=== PATIENT | male | born 1960 | race Caucasian/White ===

== ENCOUNTER 2020-09-11 20:05 | Emergency (ER) | payer MEDICAID, SELFPAY ==
[~2020-09-11] VITALS: Ht 180.3 cm; Wt 94.2 kg
--- NOTE | 2020-09-11 21:24 | REPVR ---
PROCEDURE INFORMATION: Exam: XR Right Forearm Exam date and time: 09/11/2020 9:08 PM Age: 60 years old Clinical indication: Other: Fell; Additional info: Fell down one step TECHNIQUE: Imaging protocol: XR Right forearm. Views: 2 views. COMPARISON: No relevant prior studies available. FINDINGS: Bones/joints: Comminuted distal radial fracture. Fractures extend to the articular surface. Soft tissues: Normal. IMPRESSION: Comminuted distal radial fracture. Electronically signed by: Shahid Davidson On 09/11/2020 21:23:39 PM
--- NOTE | 2020-09-11 21:25 | REPVR ---
PROCEDURE INFORMATION: Exam: XR Right Wrist Exam date and time: 09/11/2020 9:08 PM Age: 60 years old Clinical indication: Other: Fell; Additional info: Fell down one step TECHNIQUE: Imaging protocol: XR Right wrist. Views: 3 or more views. COMPARISON: No relevant prior studies available. FINDINGS: Bones/joints: Comminuted dorsally tilted (Colles type) distal radial fracture with fracture lines extending to the articular surface. Small crescent calcific density distal to the ulnar styloid may represent a chip fracture. Soft tissues: Normal. IMPRESSION: 1. Comminuted dorsally tilted (Colles type) distal radial fracture with fracture lines extending to the articular surface. 2. Small crescent calcific density distal to the ulnar styloid may represent a chip fracture. Electronically signed by: Shahid Davidson On 09/11/2020 21:24:49 PM
--- NOTE | 2020-09-11 23:57 | REPVR ---
PROCEDURE INFORMATION: Exam: CT Right Upper Extremity Without Contrast, Wrist Exam date and time: 09/11/2020 11:30 PM Age: 60 years old Clinical indication: Injury or trauma; Fall; Fracture, traumatic injury; Displaced; Wrist; Right; Additional info: Multi fragment fracture distal radius, ulnar styloid FX? TECHNIQUE: Imaging protocol: CT of the Right upper extremity without contrast was performed. Exam focused on the wrist. Radiation optimization: All CT scans at this facility use at least one of these dose optimization techniques: automated exposure control; mA and/or kV adjustment per patient size (includes targeted exams where dose is matched to clinical indication); or iterative reconstruction. COMPARISON: CR Wrist, complete RIGHT 09/11/2020 8:53 PM FINDINGS: Soft tissue swelling is present diffusely and circumferentially about the wrist. No soft tissue defect or foreign body. As seen radiographically, there is a comminuted intra-articular distal radial fracture with impaction and extension into the proximal metaphysis up to 3 cm distal to the joint line. There is fracture impaction measuring up to 1 cm dorsally and there is dorsal tilt of the distal articular surface based on the sagittal images. Impacted articular fragments show up to 3 mm punch impaction. Fracture extends into the distal radioulnar joint. No underlying osseous lesion. Distal ulna demonstrates no acute fracture deformity. There is a small calcification distal to the ulnar styloid without donor site. Carpal bones show normal alignment with no acute fracture. IMPRESSION: Acute comminuted intra-articular distal radial fracture extending into the proximal attached assess with dorsal tilt of the articular surface and up to 1 cm impaction, particularly dorsally. Punctate calcification or ossification distal to the ulnar styloid, not felt to represent an acute fracture fragment since there is no donor site. Electronically signed by: Chilango Shah On 09/11/2020 23:56:56 PM
[2020-09-12 00:35] VITALS: BP 150/92
== END 2020-09-12 00:48 | disposition home or self-care (01) ==
LOC: M ED 20:05
DX: S52.351A Displaced comminuted fracture of shaft of radius, right arm, initial encounter for closed fracture (principal); W01.0XXA Fall on same level from slipping, tripping and stumbling without subsequent striking against object, initial encounter; Y92.009 Unspecified place in unspecified non-institutional (private) residence as the place of occurrence of the external cause; Y93.89 Activity, other specified; Y99.8 Other external cause status